=== PATIENT | male | born 1990 | race Caucasian/White ===

== ENCOUNTER 2019-03-31 00:21 | Inpatient (IN) | payer MEDICAID ==
[~2019-03-31] VITALS: Ht 162.6 cm; Wt 72.6 kg
[2019-03-31 00:21] VITALS: BP 119/66
--- NOTE | 2019-03-31 00:21 | NUR ---
[place] [employer] AT BEDSIDE
--- NOTE | 2019-03-31 00:21 | NUR ---
PT MARAL BLS. TAKEN TO BED 5
--- NOTE | 2019-03-31 00:30 | NUR ---
28 Y/O [place] AND [place] [employer]. PRESENTS TO ED FOR SUICIDAL IDEATIONS. EMS WAS DISPATCHED TO PT'S HOME. PT FOUND WITH LACERATION ON LEFT WRIST. BLEEDING CONTROLLED BY PARAMEDICS WITH BANDAGE AND ROLLER GAUZE. AT ED, PT PRESENTS WITH A DEPRESSED AND FLAT AFFECT. ENDORSED HAVING SI BUT REFUSES TO ANSWER QUESTION REGARDING PLAN/INTENT. PT STATES BEING DEPRESSED FOR 3 YEARS. DENIES TAKING ANY ANTIDEPRESSANTS OR BEING DIAGNOSED WITH DEPRESSION. PT DENIES ANY PREVIOUS HOSPITALIZATIONS AND PREVIOUS HOLDS. PT DENIES ANY SUBSTANCE USE. PT AT STABLE CONDITION. ERMD AWARE. WILL CONTINUE TO MONITOR.
[2019-03-31 00:51] LABS: BASOPHILS # (AUTO) 0.1 K/uL (0.00-0.22); BASOPHILS % (AUTO) 0.6 % (0.0-2.0); EOSINOPHILS # (AUTO) 0.2 K/uL (0-0.4); EOSINOPHILS % (AUTO) 1.5 % (0.0-4.0); HEMATOCRIT 45.6 % (36-52); HEMOGLOBIN 15.4 g/dL (12.0-18.0); LYMPHOCYTES # (AUTO) 2.5 K/uL (2.0-11.5); LYMPHOCYTES % (AUTO) 23.5 % (20.5-51.1); MEAN CORPUSCULAR HEMOGLOBIN 31 pg (27-31); MEAN CORPUSCULAR HGB CONC 34 g/dL (33-37); MEAN CORPUSCULAR VOLUME 90.5 fL (80-94); MONOCYTES # (AUTO) 0.6 K/uL (0.8-1.0); MONOCYTES % (AUTO) 6.1 % (1.7-9.3); NEUTROPHILS # (AUTO) 7.3 K/uL (1.8-7.7); NEUTROPHILS % (AUTO) 68.3 % (42.2-75.2); PLATELET COUNT (AUTO) 307 K/uL (140-450); RED BLOOD CELL COUNT(AUTO) 5.04 MIL/uL (4.20-6.10); RED CELL DISTRIBUTION WIDTH 13.6 % (11.6-13.7); WHITE BLOOD COUNT (AUTO) 10.7 K/uL (4.8-10.8)
[2019-03-31 01:01] LABS: APPEARANCE,URINE CLEAR (CLEAR); BILIRUBIN,URINE NEGATIVE (NEGATIVE); BLOOD, URINE NEGATIVE (NEGATIVE); COLOR,URINE YELLOW (YELLOW); LEUKOCYTE ESTERASE ,URINE NEGATIVE (NEGATIVE); NITRITE, URINE NEGATIVE (NEGATIVE); PH,URINE 5.5 (5.0-9.0); UGLUCOSE NEGATIVE (NEGATIVE)
[2019-03-31 01:04] LABS: ALBUMIN 3.9 g/dL (3.4-5.0); ANION GAP 15.9 (8-16); ASPARTATE AMINOTRANSFERASE 22 U/L (15-37); CARBON DIOXIDE 25.8 mmol/L (21-32); CHLORIDE 102 mmol/L (98-107); GFR ARICAN-AMERICAN 116 mL/min (>90); GLUCOSE 111 mg/dL (74-106); POTASSIUM 3.7 mmol/L (3.5-5.1); SODIUM SERUM 140 mmol/L (136-145); TOTAL BILIRUBIN 0.4 mg/dL (0.0-1.0); UREA NITROGEN, BLOOD 13 mg/dL (7-18)
[2019-03-31 01:06] LABS: ACETAMINOPHEN < 0.5 ug/ml (10-30); SALICYLATE < 2.8 mg/dL (2.8-20.0)
[2019-03-31 01:09] LABS: BARBITURATE, URINE NEG. ng/ml (NEG <=200); BENZODIAZEPINE, URINE NEG. ng/mL (NEG <=200); CANNABINOID, URINE NEG. ng/mL (NEG <=50); COCAINE, URINE NEG. ng/mL (NEG <=300); OPIATE, URINE NEG. ng/mL (NEG <=2000); PHENCYCLIDINE SCREEN,URINE NEG. ng/mL (NEG <=25)
--- NOTE | 2019-03-31 01:29 | NUR ---
Dr. Lackey examining patient.
[2019-03-31] MEDS ORDERED: BACITRACIN OINT 500 UNITS/GM PKT TP ONE (01:30)
[2019-03-31] MEDS ORDERED: LIDOCAINE MPF 1% 10 MG/ML VIAL INJ ONE (01:30)
--- NOTE | 2019-03-31 02:34 | NUR ---
PT STATES BEING DEPRESSED. CONTINUES TO HAVE SUICIDAL IDEATIONS; REFUSES TO GIVE INTENT/PLAN. WILL CONTINUE TO MONITOR 1:1 WITH ED STAFF AT BEDSIDE.
--- NOTE | 2019-03-31 03:20 | NUR ---
ERMD AT BEDSIDE EVALUATING PT
--- NOTE | 2019-03-31 03:56 | NUR ---
PT AWAKE, LAYING ON BED. PT IS CALM AND COOPERATIVE. WILL CONTINUE TO MONITOR 1:1 WITH ED STAFF AT BEDSIDE.
--- NOTE | 2019-03-31 04:50 | NUR ---
PT ASLEEP ON BED. VSS. PT DENIES ANY PAIN. GUARDED ABOUT ANY SUICIDAL IDEATIONS. WILL CONTINUE TO MONITOR 1:1 WITH ED STAFF AT BEDSIDE.
--- NOTE | 2019-03-31 06:08 | NUR ---
There were no vacancy at any of the following facilities thru out the shift, Leia Ricketts Will endorsed to AM shift to continue to look for placement , Paula DUARTE made aware.
[2019-03-31] MEDS ORDERED: KETOROLAC 30 MG/ML VIAL IVP ONE (06:25)
[2019-03-31] MEDS ORDERED: ONDANSETRON 4 MG/2 ML VIAL IVP PRN (06:50)
[2019-03-31] MEDS ORDERED: NACL 0.9% 1,000 ML IV SCH (06:50)
[2019-03-31] MEDS ORDERED: ACETAMINOPHEN 325 MG TAB PO PRN (06:50)
[2019-03-31] MEDS ORDERED: LORazepam 2 MG/ML VIAL IVP PRN (07:20)
[2019-03-31 08:00] VITALS: BP 111/68
--- NOTE | 2019-03-31 08:00 | NUR ---
RECEIVED REPORT FROM CHARGE NURSE RENITA FOR CONTINUITY OF CARE. PT IN STABLE CONDITION. RESPIRATIONS EVEN AND UNLABORED, ROOM AIR. IV INTACT AND PATENT. SAFETY MEASURES IN PLACE. ORIENTED PT TO ROOM. SITTER 1:1 AT BEDSIDE. BED IN LOW POSITION. WILL CONTINUE TO MONITOR.
--- NOTE | 2019-03-31 08:28 | NUR ---
PATIENT HAS BEEN SCREENED AND CATEGORIZED LOW NUTRITION RISK. PATIENT WILL BE SEEN WITHIN 7 DAYS OF ADMISSION. 04/06/[address]
--- NOTE | 2019-03-31 08:45 | NUR ---
PT REFUSED CALL FROM SISTER AT THIS TIME. WILL CONTINUE TO MONITOR. SITTER 1:1 AT BEDSIDE.
[2019-03-31] MEDS ORDERED: MULTIVITAMIN-12 10 ML, THIAMINE 100 MG, MAGNESIUM SULFATE 50% 2,000 MG, FOLIC ACID 1 MG... IV SCH ×5 (09:00)
[2019-03-31 09:10] LABS: PROTHROMBIN TIME 9.9 secs (10.8-13.4)
[2019-03-31] MEDS: FOLIC ACID 1 MG TAB PO SCH (09:11)
[2019-03-31] MEDS: MULTIVITAMIN 1 TAB PO SCH (09:11)
[2019-03-31] MEDS: DOCUSATE SODIUM 100 MG GELCAP PO SCH ×2 (09:11→21:00)
[2019-03-31] MEDS: THIAMINE 100 MG TAB PO SCH (09:11)
[2019-03-31] MEDS: chlordiazePOXIDE 25 MG CAP PO SCH ×3 (09:12→16:21)
--- NOTE | 2019-03-31 09:12 | NUR ---
GAVE ORDERED DUE MEDICATIONS AT THIS TIME. PT TOLERATED WELL. WILL CONTINUE TO MONITOR. SITTER 1:1 AT BEDSIDE. BED IN LOW POSITION.
[2019-03-31 09:20] LABS: FREE T4 (FREE THYROXINE) 0.98 ng/dL (0.76-1.46); MAGNESIUM 1.9 mg/dL (1.8-2.4); PHOSPHORUS 3.3 mg/dL (2.5-4.9); THYROID STIMULATING HORMONE 0.93 uIU/mL (0.34-3.74)
--- NOTE | 2019-03-31 09:25 | NUR ---
Received report from shift boss. [facility] still looking for placement.
--- NOTE | 2019-03-31 09:27 | NUR ---
Called the following facilities: [facility] s/w Nancy. No beds at this time, pending discharges later. [facility] s/w Chandrika. No beds, pending discharges. [facility] s/w Matt. No beds. Was instructed to call back after 1PM. [facility] s/w Lakeshia. No beds.
--- NOTE | 2019-03-31 09:33 | NUR ---
Packet faxed to [facility] for review.
--- NOTE | 2019-03-31 09:41 | NUR ---
CRITICAL LAB TROPONIN 0.132
--- NOTE | 2019-03-31 11:01 | NUR ---
Called [facility], s/w [facility]. No beds, facility is still full.
--- NOTE | 2019-03-31 11:44 | NUR ---
PT LYING IN BED IN STABLE CONDITION. SITTER 1:1 AT BEDSIDE. BED IN LOW POSITION. WILL CONTINUE TO MONITOR.
[2019-03-31 12:00] VITALS: BP 108/70
--- NOTE | 2019-03-31 13:29 | NUR ---
GAVE ORDERED DUE MEDICATION. PT TOLERATED WELL. WILL CONTINUE TO MONITOR. BED IN LOW POSITION. SITTER 1:1 AT BEDSIDE.
--- NOTE | 2019-03-31 14:55 | NUR ---
CRITICAL LAB TROPONIN 0.087 TRENDING DOWN.
--- NOTE | 2019-03-31 15:03 | NUR ---
DC PLANNIN YRS OLD PT WAS ADMITTED FROM HOME WITH A DX OF SUICIDAL IDEATION AND ALCOHOL WITHDRAWAL. PT HAS NO MEDICAL HX , INDEPENDENT TO PERFORM ADLS. ELEVATED TROPONIN DUE TO ALCOHOL WITHDRAWAL. BANANA BAG GIVEN, PSYCH CONSULT WITH DR ALLRED AND 1:1 SITTER FOR SAFETY[facility]. CM TO FOLLOW
--- NOTE | 2019-03-31 15:25 | NUR ---
PT IS ASLEEP IN BED. PT IS STABLE, RESPIRATION ARE EVEN AND UNLABORED ON ROOM AIR. BANANA BAG AT 100 ML/HR. 1:1 SITTER IN THE ROOM WITH PT. CALL LIGHT WITHIN REACH.
[2019-03-31 16:00] VITALS: BP 99/65
--- NOTE | 2019-03-31 18:30 | NUR ---
PT ASLEEP IN BED. PT STABLE, RESPIRATION ARE EVEN AND UNLABORED ON ROOM AIR. LEFT WRIST DRESSING, DRY AND INTACT. CALL LIGHT WITHIN REACH.
--- NOTE | 2019-03-31 19:08 | NUR ---
GAVE REPORT TO NIGHT NURSE FOR CONTINUITY OF CARE. PT IS STABLE, RESPIRATION EVEN AND UNLABORED ON ROOM AIR.
--- NOTE | 2019-03-31 19:09 | NUR ---
RECD. SITTING ON BED, AWAKE, A/OX4. RESPIRATION EVEN AND UNLABORED. BANANA BAG INFUSING AT 100 ML/HR RIGHT AC G20. LEFT WRIST LACERATION COVERED WITH KERLIX, DRY AND INTACT. SEEMS SAD AND DEPRESSED. WHEN INQUIRED IF HE HAS STILL PLAN OF HURTING SELF, STATED YES. MORAL ENCOURAGEMENT GIVEN. PLAN OF CARE FOR THE SHIFT DISCUSSED. VERBALIZED UNDERSTANDING. DENIES PAIN 0/10. WILL CONTINUE TO MONITOR PATIENT AND ENSURE SAFETY THROUGHOUT THE SHIFT BEING THE NURSE SITTER FOR THIS PATIENT.
--- NOTE | 2019-03-31 19:15 | NUR ---
DR. ALLRED CAME AND SPOKE WITH PATIENT WITH FOLLOW UP WITH ANY NEW ORDERS.
--- NOTE | 2019-03-31 19:30 | NUR ---
DR. ALLRED ORDERED LEXAPRO 5 MG. PO TO START TOMORROW.
--- NOTE | 2019-03-31 19:45 | NUR ---
AMBULATED TO BR, STATED HE HAD BM. BACK TO BED AFTER USING BR.
[2019-03-31 20:00] VITALS: BP 100/67
--- NOTE | 2019-03-31 20:25 | NUR ---
SITTING ON BED, READING A BOOK.
--- NOTE | 2019-03-31 20:45 | NUR ---
SLEEPING COMFORTABLY IN BED.
--- NOTE | 2019-03-31 21:45 | NUR ---
WOKE UP, AMBULATED TO BR TO VOID, BACK TO BED AFTER VOIDING AND WENT BACK TO SLEEP.
--- NOTE | 2019-04-01 | NUR ---
SLEEPING COMFORTABLY IN BED, NO APPARENT DISTRESS NOTED.
--- NOTE | 2019-04-01 02:37 | NUR ---
Follow up calls were made to [facility] contracted psych facilities regarding bed placement, still no update on bed vacancies through out shift. [facility], spoke with florence. [facility], spoke with Linda. [facility], spoke with Jaz. [facility], spoke with Rajiv. [facility], spoke with Ginette. [facility], spoke with Lala. [facility], spoke with Paty. [facility] will continue to follow up in the AM for pending discharges with contracted facilities.
--- NOTE | 2019-04-01 04:00 | NUR ---
STILL SLEEPING COMFORTABLY. SAFETY MAINTAINED.
--- NOTE | 2019-04-01 04:45 | NUR ---
AWAKE, COOPERATIVE WITH THE CREDIT AND COLLECTIONS ANALYST FOR AM BLOOD DRAW.
--- NOTE | 2019-04-01 06:00 | NUR ---
AWAKE IN BED, READING A BOOK. NEW SITTER AT THE DOOR MONITORING PATIENT.
[2019-04-01 06:04] LABS: CHOL/HDL RATIO 4.2 (1-4.5); PHOSPHORUS 3.7 mg/dL (2.5-4.9)
[2019-04-01 06:12] LABS: BASOPHILS % (AUTO) 0.7 % (0.0-2.0); EOSINOPHILS # (AUTO) 0.3 K/uL (0-0.4); EOSINOPHILS % (AUTO) 5.9 % (0.0-4.0); HEMOGLOBIN 13.7 g/dL (12.0-18.0); LYMPHOCYTES # (AUTO) 2.3 K/uL (2.0-11.5); LYMPHOCYTES % (AUTO) 40.9 % (20.5-51.1); MEAN CORPUSCULAR HEMOGLOBIN 31 pg (27-31); MEAN CORPUSCULAR HGB CONC 34 g/dL (33-37); MEAN CORPUSCULAR VOLUME 91.3 fL (80-94); MONOCYTES # (AUTO) 0.4 K/uL (0.8-1.0); MONOCYTES % (AUTO) 7.5 % (1.7-9.3); NEUTROPHILS # (AUTO) 2.5 K/uL (1.8-7.7); PLATELET COUNT (AUTO) 264 K/uL (140-450); RED BLOOD CELL COUNT(AUTO) 4.49 MIL/uL (4.20-6.10); RED CELL DISTRIBUTION WIDTH 13.5 % (11.6-13.7); WHITE BLOOD COUNT (AUTO) 5.6 K/uL (4.8-10.8)
--- NOTE | 2019-04-01 06:54 | NUR ---
CONDITION REMAIN STABLE. SAFETY MAINTAINED DURING SHIFT. NO SUICIDAL BEHAVIOR NOTED.
--- NOTE | 2019-04-01 07:08 | NUR ---
ENDORSED TO AM SHIFT NURSE FOR CONTINUITY OF CARE.
--- NOTE | 2019-04-01 07:10 | NUR ---
RECEIVED PT FROM NIGHT NURSE. PT LAYING IN BED WITH EYES CLOSED, AROUSABLE TO SPEECH, AAOX4. RESPIRATIONS EVEN AND UNLABORED ON ROOM AIR, CLEAR BREATH SOUNDS. PT DENIES PAIN AT THIS TIME, NO DISTRESS NOTED. IV IN PLACE PATENT AND ASYMPTOMATIC IN R AC 20G SALINE LOCKED. BED IN LOW POSITION SAFETY MEASURES IN PLACE. 1:1 SITTER. WILL CONTINUE TO MONITOR.
[2019-04-01 07:16] LABS: ANION GAP 15.8 (8-16); CARBON DIOXIDE 25.2 mmol/L (21-32); CREATININE 1.1 mg/dL (0.7-1.3)
--- NOTE | 2019-04-01 07:54 | NUR ---
Received report from um rn. There are no new updates from any contacted facilities. [facility] still looking for placement.
[2019-04-01 08:00] VITALS: BP 108/70
[2019-04-01] MEDS: FOLIC ACID 1 MG TAB PO SCH (08:45)
[2019-04-01] MEDS: chlordiazePOXIDE 25 MG CAP PO SCH ×3 (08:45→16:51)
[2019-04-01] MEDS: ESCITALOPRAM 20 MG TAB PO SCH (08:45)
[2019-04-01] MEDS: THIAMINE 100 MG TAB PO SCH (08:45)
[2019-04-01] MEDS: DOCUSATE SODIUM 100 MG GELCAP PO SCH ×2 (08:46→21:14)
[2019-04-01] MEDS: MULTIVITAMIN 1 TAB PO SCH (08:46)
--- NOTE | 2019-04-01 08:49 | NUR ---
MEDICATIONS ADMINISTERED PER ORDER. PT TOLERATED WELL. NO DISTRESS NOTED. PT DENIES PAIN. WILL CONTINUE TO MONITOR.
--- NOTE | 2019-04-01 10:29 | NUR ---
Followed up with [facility] s/w Ely. There a currently no beds available.
--- NOTE | 2019-04-01 10:31 | NUR ---
Called [facility] s/w Marco Antonio. No beds at this time.
--- NOTE | 2019-04-01 11:00 | NUR ---
Called the following facilities: [facility], s/w Marquise Head. No beds. [facility], s/w Rosa. No beds. [facility], s/w Carolina. No beds. [facility], s/w Tommy. No beds. [facility], called x3 no answer. Will follow up.
--- NOTE | 2019-04-01 11:21 | NUR ---
PT IN BED READING. DENIES PAIN, NO DISTRESS NOTED. PT STATES FEELING BETTER AND NOT HAVING SUICIDAL THOUGHTS ANYMORE. 1:[address] SAFETY MEASURES IN PLACE. WILL CONTINUE TO MONITOR.
--- NOTE | 2019-04-01 13:01 | NUR ---
MEDICATIONS ADMINISTERED PER ORDER. PT TOLERATED WELL. NO DISTRESS NOTED, DENIES PAIN. 1:[address] WILL CONTINUE TO MONITOR.
[2019-04-01] MEDS ORDERED: LIB25 PO (14:18)
[2019-04-01] MEDS ORDERED: THIA-34 PO (14:18)
[2019-04-01] MEDS ORDERED: MULT-405 PO (14:18)
[2019-04-01] MEDS ORDERED: FOLI1TAB90 PO (14:18)
[2019-04-01] MEDS ORDERED: ESCI20TA47 PO (14:18)
[2019-04-01] MEDS: BACITRACIN OINT 15000 UNITS/30 GM TUBE TP SCH (15:24)
[2019-04-01] MEDS: MILD SOAP AND WATER TP SCH (15:24)
[2019-04-01] MEDS: DRY DRESSING TP SCH (15:25)
--- NOTE | 2019-04-01 15:48 | NUR ---
VITAL SIGNS MONITORED AT THIS TIME. PT DENIES PAIN, NO DISTRESS NOTED. SAFETY MEASURES IN PLACE 1:1 SITTER. WILL CONTINUE TO MONITOR.
[2019-04-01 16:00] VITALS: BP 116/75
--- NOTE | 2019-04-01 17:24 | NUR ---
MEDICATIONS ADMINISTERED PER ORDER. PT TOLERATED WELL. NO DISTRESS NOTED, DENIES PAIN. SAFETY MEASURES IN PLACE. WILL CONTINUE TO MONITOR.
--- NOTE | 2019-04-01 19:05 | NUR ---
REPORT GIVEN TO NIGHT NURSE FOR CONTINUITY OF CARE.
--- NOTE | 2019-04-01 19:06 | NUR ---
RECEIVED BEDSIDE REPORT FROM AM SHIFT NURSE. PT IS AWAKE AND ALERT SITTING ON BED. NO SOB OR DISTRESS NOTED. IV ACCESS ON RIGHT AC 20 GAUGE SALINE LOCK. DRESSING NOTED ON LEFT WRIST DRY AND INTACT. 1:[address] BED IN LOW. SAFETY MEASURES IN PLACE. WILL CONTINUE TO MONITOR PATIENT CLOSELY.
--- NOTE | 2019-04-01 19:30 | NUR ---
PT SHOWERED AT THIS TIME ACCOMPANIED BY VIDEO RENTAL CLERK.
--- NOTE | 2019-04-01 20:00 | NUR ---
PATIENT RETURNED FROM SHOWER. ACCOMPANIED BY APPRENTICE ELECTRICIAN. DRESSING CHANGED ON LEFT WRIST. SUTURES IN PLACE. WILL CONTINUE TO MONITOR PATIENT.
--- NOTE | 2019-04-01 22:30 | NUR ---
ROUNDS DONE. VISIBLE CHEST AND FALL NOTED. WILL CONTINUE TO MONITOR PATIENT. 1:[address]
--- NOTE | 2019-04-01 23:16 | NUR ---
Follow up calls were made and still no update on bed vacancies. [facility], spoke with Beatriz. [facility], spoke with Chikis. [facility], spoke with Fab. [facility], spoke with Kari. [facility], spoke with Thea. [facility], spokew favio Perez. [facility], spoke with Mely.
--- NOTE | 2019-04-02 00:25 | NUR ---
VITAL SIGNS TAKEN AT THIS TIME. 1:[address] WILL CONTINUE TO MONITOR PATIENT.
[2019-04-02 00:27] VITALS: BP 113/81
--- NOTE | 2019-04-02 02:30 | NUR ---
ROUNDS DONE. VISIBLE CHEST RISE AND FALL NOTED. 1:[address] WILL CONTINUE TO MONITOR PATIENT.
--- NOTE | 2019-04-02 04:15 | NUR ---
ROUNDS DONE. VISIBLE CHEST RISE AND FALL NOTED. 1:[address] WILL CONTINUE TO MONITOR PATIENT.
--- NOTE | 2019-04-02 06:31 | NUR ---
PT IN STABLE CONDITION. WILL ENDORSE TO AM SHIFT NURSE FOR CONTINUITY OF CARE.
--- NOTE | 2019-04-02 07:10 | NUR ---
RECEIVED PT FROM TONGUE PRESSER NURSEANGELLA, PT IS AWAKE AND LYING ON THE BED WITH 1:1 SITTER ON THE BEDSIDE, IV LINE ON THE RT AC G.[address] ON SALINE LOCK, PT DENIES PAIN AND DENIES ANY SUICIDAL THOUGHTS, SAFETY AND SUICIDAL PRECAUTION ENFORCED, ROOM CHECKED FOR HAZARDOUS OBJECTS. WILL MONITOR PT.
--- NOTE | 2019-04-02 07:25 | NUR ---
Received report from shift superintendent caustic cresylate. [facility] still looking for placement.
[2019-04-02 08:00] VITALS: BP 105/72
[2019-04-02] MEDS: MULTIVITAMIN 1 TAB PO SCH (09:16)
[2019-04-02] MEDS: THIAMINE 100 MG TAB PO SCH (09:16)
[2019-04-02] MEDS: FOLIC ACID 1 MG TAB PO SCH (09:16)
--- NOTE | 2019-04-02 09:16 | NUR ---
PT IS AWAKE NA
--- NOTE | 2019-04-02 09:16 | NUR ---
PT IS AWAKE AND ORAL MEDICATIONS WERE GIVEN AND TOLERATED IT, 1:1 SITTER ON THE BEDSIDE, WILL MONITOR PT.
[2019-04-02] MEDS: BACITRACIN OINT 15000 UNITS/30 GM TUBE TP SCH (09:17)
[2019-04-02] MEDS: chlordiazePOXIDE 25 MG CAP PO SCH ×3 (09:17→17:39)
[2019-04-02] MEDS: ESCITALOPRAM 20 MG TAB PO SCH (09:18)
[2019-04-02] MEDS: MILD SOAP AND WATER TP SCH (09:18)
[2019-04-02] MEDS: DOCUSATE SODIUM 100 MG GELCAP PO SCH (09:20)
--- NOTE | 2019-04-02 11:43 | NUR ---
Called the following facilities: [facility], s/w [facility]. No possible beds today. [facility], s[facility]w Rosa. No beds, possible discharges later. [facility] s/w Archana. No beds at this time. [facility], s/w Allison. No beds. [facility], s/w Elly. No beds at this time.
[2019-04-02] MEDS: DRY DRESSING TP SCH (13:18)
--- NOTE | 2019-04-02 13:18 | NUR ---
PT'S LEFT WRIST WAS CLEANED AND MEDICATION WAS APPLIED AND REINFORCED WITH DRESSING.
--- NOTE | 2019-04-02 13:20 | NUR ---
PT IS CALM AND SATED ON THE BED, 1:1 SITTER ON BEDSIDE, LIBRIUM WS GIVEN, PARAMETER CHECKED, WILL MONITOR PT.
[2019-04-02 16:00] VITALS: BP 106/65
--- NOTE | 2019-04-02 16:16 | NUR ---
RECEIVED ENDORSEMENT FROM AM SHIFT NURSE. PATIENT ALERT AND ORIENTED X4. NO APPARENT DISTRESS NOTED. WITH PIV ON RIGHT AC 20G ON SALINE LOCK. FOR DISCHARGE TODAY. WILL CONTINUE TO MONITOR. Addendum: 04/02/19 at 2306 by Eleni Rees RN DISREGARD NOTE. WRONG TIME.
--- NOTE | 2019-04-02 17:32 | NUR ---
PT WQAS GIVEN LIBRIUM NOW, BP IS 1106/65, PULSE IS 73, O2 SATURATION IS 95%. WILL MONITOR PT.
--- NOTE | 2019-04-02 19:15 | NUR ---
ENDORSED PT TO HOME AID NURSE FOR CONTINUITY OF CARE
--- NOTE | 2019-04-02 19:16 | NUR ---
RECEIVED ENDORSEMENT FROM AM SHIFT NURSE. PATIENT ALERT AND ORIENTED X4. NO APPARENT DISTRESS NOTED. WITH PIV ON RIGHT AC 20G ON SALINE LOCK. FOR DISCHARGE TODAY. WILL CONTINUE TO MONITOR.
--- NOTE | 2019-04-02 19:52 | NUR ---
[facility] is still aware of patient, no bed vacancies at the following contracted psych facilities. [facility], spoke with López. [facility], spoke with Sabrina. [facility], spoke with Sonido. [facility], spoke with Archana. [facility], spoke with Rodri. 5150 will 04/02 @ 5953 and patient will need a re evaluation.
[2019-04-02 20:02] VITALS: BP 111/67
--- NOTE | 2019-04-02 21:15 | NUR ---
DISCHARGED PATIENT TO HOME. PATIENT WALKING BY HIMSELF. D/C V/S = 98% ON ROOM AIR, 125/68, 67 AND 0/10 PAIN. REMOVED NAMEBAND. DISCHARGE PAPERWORK DONE AND SIGNED BY PATIENT. DISCHARGE INSTRUCTIONS GIVEN AND PATIENT VERBALIZED UNDERSTANDING. RETURNED ALL OF BELONGINGS. OUT OF HOSPITAL AT 5.
--- NOTE | 2019-04-05 09:08 | NUR ---
WOUND CARE CONSULT NOT DONE, PT. DISCHARGED.
== END 2019-04-02 21:15 | disposition home or self-care (01) | DRG 384 ==
LOC: EDBD 00:21 → MED 00:21 → MTU 06:50
PROVIDERS: ADMIT General Practice; ATTEND General Practice
PROC: 3E0234Z Introduction of Serum, Toxoid and Vaccine into Muscle, Percutaneous Approach (ICD-10-PCS; principal; 2019-03-31)
PROC: 0HQEXZZ Repair Left Lower Arm Skin, External Approach (ICD-10-PCS; 2019-03-31)
DX: S61.512A Laceration without foreign body of left wrist, initial encounter (principal); R45.851 Suicidal ideations; F10.239 Alcohol dependence with withdrawal, unspecified; Y90.3 Blood alcohol level of 60-79 mg/100 ml; Z23 Encounter for immunization; X78.8XXA Intentional self-harm by other sharp object, initial encounter; Y93.89 Activity, other specified; Y92.89 Other specified places as the place of occurrence of the external cause; Y99.8 Other external cause status
CPT/HCPCS: 36415; 71045; 80048; 80053; 80305; 81003; 82140; 82150; 83036; 83690; 83735; 83880; 84100; 84439; 84443; 84484; 85025; 85610; 85730; 87081; 90471; 90715; 93005; 96374; 99285; A9153; G0480; G0482; J1885; J2001; J3411; J3475; J3490; J7030; Q0092

== ENCOUNTER 2019-04-07 09:16 | Emergency (ER) | payer MEDICAID ==
[~2019-04-07] VITALS: Ht 162.6 cm; Wt 69.6 kg
[~2019-04-07 09:16] MED LIST: ESCI20TA47 PO; FOLI1TAB90 PO; LIB25 PO; MULT-405 PO; THIA-34 PO
--- NOTE | 2019-04-07 09:24 | NUR ---
PATIENT AMBULATED TO BED 4.
[2019-04-07 09:25] VITALS: BP 115/70
--- NOTE | 2019-04-07 09:25 | NUR ---
28 Y/O MALE PRESENTING WITH C/C OF L-WRIST SUTURE REMOVAL. PT HAS NO PAIN, NO OTHER S/S. PT NKA. NO MEDICAL HX. NO MEDS ON REGULAR BASIS. SIDE RAIL X1.
[2019-04-07 09:57] VITALS: BP 115/70
--- NOTE | 2019-04-07 09:57 | NUR ---
MENTAL HEALTH REFERENCE PAPER PROVIDED TO PATIENT WITH D/C PAPERWORK
--- NOTE | 2019-04-07 09:57 | NUR ---
Patient discharged with v/s stable. Written and verbal after care instructions given and explained. Patient verbalized understanding. Ambulatory with steady gait. All questions addressed prior to discharge. Advised to follow up with PMD.
== END 2019-04-07 09:57 | disposition home or self-care (01) ==
LOC: MED 09:16
DX: S61.512D Laceration without foreign body of left wrist, subsequent encounter (principal); X58.XXXA Exposure to other specified factors, initial encounter; Y93.89 Activity, other specified; Y92.89 Other specified places as the place of occurrence of the external cause; Y99.8 Other external cause status; Z79.899 Other long term (current) drug therapy
CPT/HCPCS: 12001; 99283

== ENCOUNTER 2019-04-12 16:27 | Emergency (ER) | payer MEDICAID ==
[~2019-04-12] VITALS: Ht 162.6 cm; Wt 67.6 kg
[2019-04-12 16:34] VITALS: BP 102/75
--- NOTE | 2019-04-12 16:45 | NUR ---
PT NEEDS SUTURE REMOVAL FROM L WRIST. SUTURES C/D/I. NO REDNESS OR DRAINAGE NOTED. PT DENIES PAIN. VS STABLE. PT ALERT AND AWAKE. HX: NONE RX: NONE
--- NOTE | 2019-04-12 16:47 | NUR ---
EMT REMOVING SUTURES
[2019-04-12 16:51] VITALS: BP 102/75
== END 2019-04-12 16:50 | disposition home or self-care (01) ==
LOC: MED 16:27
DX: S61.512D Laceration without foreign body of left wrist, subsequent encounter (principal); Z79.899 Other long term (current) drug therapy; X58.XXXD Exposure to other specified factors, subsequent encounter
CPT/HCPCS: 99281